=== PATIENT | female | born 1950 | race Caucasian/White ===

== ENCOUNTER 2018-01-27 15:28 | Emergency (ER) | payer OTHER, SELFPAY ==
[2018-01-27 15:32] VITALS: BP 143/87; PULSE 70; RESP 16; TEMP 36.4; O2SAT 98; BMI 25.7
--- NOTE | 2018-01-27 15:37 | DI.RAD.S_ITS ---
PROCEDURE: XR WRIST LT MIN 3V INDICATIONS: fell TECHNIQUE: 4 views of the wrist were acquired. COMPARISON: None. FINDINGS: Bones: Comminuted, displaced, intra-articular fracture of the distal radius is noted. Ulnar styloid process fracture is noted which is displaced. Scaphoid view: Scaphoid is intact Soft tissues: No suspicious soft tissue calcifications. IMPRESSION: Distal radius and ulna fractures. Dictated by: Imani Rivers MD, PhD on 01/27/2018 at 16:12 Approved by: Imani Rivers MD, PhD on 01/27/2018 at 16:12
--- NOTE | 2018-01-27 16:54 | ED.UPPEXIN ---
HPI - Extremity Injury (Upper) <ADE Barrios - Last Filed: 01/27/18 22:13> General Chief Complaint: Extremity Injury, Upper Stated Complaint: FELL, THINKS LT ARM BROKEN Time Seen by Provider: 01/27/18 16:54 Source: patient Mode of arrival: ambulatory Limitations: no limitations History of Present Illness HPI narrative: 67-year-old female had a ground level fall earlier this afternoon before arrival. She states that she accidentally tripped over a wooden Pallet causing her to fall backwards and she landed on her left hand that she use to brace her fall. She reports since that timeframe she has had pain into that area. She has got swelling to the left wrist. She reports increased pain with motion of the left wrist. She reports decreased pain when she does holes the wrist to her body. She denies any other injuries. No loss of conscious. She is ambulatory into the emergency room. MD complaint: injury to: left and wrist Related Data Previous Rx's Medication Instructions Recorded hydrocodone-acetaminophen [[place]] 1 tab PO Q4-6H PRN #10 tab 01/27/18 Allergies Allergy/AdvReac Type Severity Reaction Status Date / Time Penicillins AdvReac Intermediate Hives Verified 01/27/18 15:37 shellfish derived AdvReac Intermediate Vomiting Verified 01/27/18 15:37 Review of Systems <ADE Barrios - Last Filed: 01/27/18 22:13> Constitutional Denies chills, Denies fever(s), Denies lethargy and Denies weakness Eyes Denies change in vision, Denies eye discharge, Denies irritation and Denies loss of vision ENT Ears, Nose, Mouth, and Throat: Denies change in voice, Denies neck pain and Denies sore throat Cardiovascular Denies chest pain, Denies irregular heart rhythm, Denies lightheadedness, Denies palpitations, Denies dyspnea, Denies dyspnea on exertion and Denies orthopnea Respiratory Denies cough, Denies dyspnea, Denies dyspnea on exertion and Denies wheezing Gastrointestinal Gastrointestinal: Denies abdominal pain, Denies change in bowel habits, Denies diarrhea, Denies nausea and Denies vomiting Genitourinary Denies hematuria, Denies flank pain, Denies urinary incontinence and Denies urinary urgency Musculoskeletal Denies neck pain Comments: Left wrist with swelling and discomfor. t Integumentary/Breasts Denies pruritus, Denies erythema, Denies rash and Denies wounds Neurologic Denies confusion, Denies loss of vision and Denies weakness Psychiatric Denies anxiety, Denies confusion, Denies depression, Denies homicidal ideation and Denies suicidal ideation Endocrine Denies palpitations Hematologic/Lymphatic Denies easy bruising Allergic/Immunologic Denies wheezing Exam <ADE Barrios - Last Filed: 01/27/18 22:13> Initial Vital Signs Initial Vital Signs: Vital Signs Temperature 97.6 F 01/27/18 15:32 Pulse Rate 70 01/27/18 15:32 Respiratory Rate 16 01/27/18 15:32 Blood Pressure 143/87 H 01/27/18 15:32 Pulse Oximetry 98 01/27/18 15:32 Const General: cooperative and well developed Nutritional Appearance: well nourished Orientation: alert, awake, oriented x3 and not confused [place] Mouth: oral mucosae normal and moist mucous membranes Eyes Conjunctivae: conjunctivae normal Sclera: sclerae normal Pupils: PERRL EOM: EOM intact bilaterally Resp Effort & Inspection: normal respiratory effort, able to speak in complete sentences, no respiratory distress and no use of accessory muscles Auscultation: clear to auscultation bilaterally, no rales, no rhonchi and no wheezes Cardio Rate: regular rate Rhythm: regular rhythm Heart Sounds: no click, no gallops, no murmurs and no rubs Skin General: no rashes or lesions noted, No jaundice and No petechiae Neuro General: alert, oriented x3, gait normal and no focal motor deficits Speech: speech normal Extrem Other: Left wrist with swelling. No open lesions. Slight ecchymosis to the area. Distal sensation is intact. Distal cap refill less than 2 sec. Distal range of motion is intact. <Juvencio Laird MD - Last Filed: 01/30/18 08:44> Initial Vital Signs Initial Vital Signs: Vital Signs Temperature 97.6 F 01/27/18 15:32 Pulse Rate 70 01/27/18 15:32 Respiratory Rate 16 01/27/18 15:32 Blood Pressure 143/87 H 01/27/18 15:32 Pulse Oximetry 98 01/27/18 15:32 Procedures <ADE Barrios - Last Filed: 01/27/18 22:13> Orthopedic Splinting/Casting Injury #1: Additional Comments: Sugar tong splint applied to left forearm/wrist. After splint was applied distal CMS is intact. Course <ADE Barrios - Last Filed: 01/27/18 22:13> Orders Ordered: Discontinued Medications Hydrocodone Bitart/Acetaminophen ([place] 5/325) 1 tab PO NOW ONE Stop: 01/27/18 17:26 Last Admin: 01/27/18 18:24 Dose: 1 tab Vital Signs - 8 hr 01/27/18 15:32 01/27/18 17:13 01/27/18 18:50 Temperature 97.6 F 98.0 F Pulse Rate 70 69 69 Respiratory Rate 16 18 20 Blood Pressure 143/87 H 137/80 H Blood Pressure [Left Arm] 153/84 H Pulse Oximetry 98 97 99 <Juvencio Laird MD - Last Filed: 01/30/18 08:44> Orders Ordered: Discontinued Medications Hydrocodone Bitart/Acetaminophen ([place] 5/325) 1 tab PO NOW ONE Stop: 01/27/18 17:26 Last Admin: 01/27/18 18:24 Dose: 1 tab Vital Signs - 8 hr 01/27/18 15:32 01/27/18 17:13 01/27/18 18:50 Temperature 97.6 F 98.0 F Pulse Rate 70 69 69 Respiratory Rate 16 18 20 Blood Pressure 143/87 H 137/80 H Blood Pressure [Left Arm] 153/84 H Pulse Oximetry 98 97 99 MDM - Extremity Injury (Upper) <ADE Barrios - Last Filed: 01/27/18 22:13> Imaging Data Left wrist : Radiologist's impression: [address] [place] [id number] XRay Report Signed Patient: NIDA PARKER MR#: [id number] : 1950 Acct:[id number] Age/Sex: 67 / F Date of Service: 01/27/18 Loc: ED Accession Number: [id number] Procedure: XR wrist LT min 3V Ordering Provider: Juvencio Laird M.D. PROCEDURE: XR WRIST LT MIN 3V INDICATIONS: fell TECHNIQUE: 4 views of the wrist were acquired. COMPARISON: None. FINDINGS: Bones: Comminuted, displaced, intra-articular fracture of the distal radius is noted. Ulnar styloid process fracture is noted which is displaced. Scaphoid view: Scaphoid is intact Soft tissues: No suspicious soft tissue calcifications. IMPRESSION: Distal radius and ulna fractures. Dictated by: Imani Rivers MD, PhD on 01/27/2018 at 16:12 Approved by: Imani Rivers MD, PhD on 01/27/2018 at 16:12 [facility] Narrative Medical decision making narrative: Extremity of the left wrist was obtained and shows comminuted displaced impacted fracture of the left radius and status fracture of the left ulna. Discussed case with Dr. Mckeon who states that fracture is stable enough to splint. Patient is from out of town and is from [facility]. She is splinted with a sugar-tong splint. Provided with a CD with her x-rays she will follow up with her orthopedics next week [id number] Tylenol and Motrin as needed for any discomfort. Ice and elevation help with swelling. [place] is prescribed for breakthrough pain. For any worsening symptoms return emergency room. Discharge Plan Departure Patient Disposition: Home, Self-Care Clinical Impression: Left wrist fracture Discharge Date/Time: 01/27/18 19:01 Interventions: ED Discharge Assessment Last Done: 01/27/18 18:50 Instructions: DI for Distal Radius Fracture Activity Restrictions/Additional Instructions: X-rays show fracture of the distal radius and ulna. You have been placed in a splint for comfort and support use as directed. Use [id number] Tylenol or Motrin as needed for any discomfort. Ice and elevation over the next several days to help with swelling. [place] is prescribed for breakthrough pain not covered by Tylenol and Motrin use as directed no driving while on the [place]. Follow up with Orthopedics in the next few days for re-evaluation. For any worsening symptoms return to the emergency room. Prescriptions: New hydrocodone-acetaminophen [[place]] 5-325 mg tablet 1 tab PO Q4-6H PRN (Reason: pain) Qty: 10 RF: 0 Referrals: Federico Bishop ARNP [Emergency Provider] - <Juvencio Laird MD - Last Filed: 01/30/18 08:44> Sign Out Provider Sign Out Attestation: The PA/CUTTER HEAD SHARPENER functioned independently for the care of this pt, I was available, but not asked to participate in care. I am unable to determine appropriateness of management without personally examining the pt.
--- NOTE | 2018-01-27 17:05 | ED_ITS ---
HPI - Extremity Injury (Upper) <ADE Barrios - Last Filed: 01/27/18 22:13> General Chief Complaint: Extremity Injury, Upper Stated Complaint: FELL, THINKS LT ARM BROKEN Time Seen by Provider: 01/27/18 16:54 Source: patient Mode of arrival: ambulatory Limitations: no limitations History of Present Illness HPI narrative: 67-year-old female had a ground level fall earlier this afternoon before arrival. She states that she accidentally tripped over a wooden Pallet causing her to fall backwards and she landed on her left hand that she use to brace her fall. She reports since that timeframe she has had pain into that area. She has got swelling to the left wrist. She reports increased pain with motion of the left wrist. She reports decreased pain when she does holes the wrist to her body. She denies any other injuries. No loss of conscious. She is ambulatory into the emergency room. MD complaint: injury to: left and wrist Related Data Previous Rx's Medication Instructions Recorded hydrocodone-acetaminophen [[place]] 1 tab PO Q4-6H PRN #10 tab 01/27/18 Allergies Allergy/AdvReac Type Severity Reaction Status Date / Time Penicillins AdvReac Intermediate Hives Verified 01/27/18 15:37 shellfish derived AdvReac Intermediate Vomiting Verified 01/27/18 15:37 Review of Systems <ADE Barrios - Last Filed: 01/27/18 22:13> Constitutional Denies chills, Denies fever(s), Denies lethargy and Denies weakness Eyes Denies change in vision, Denies eye discharge, Denies irritation and Denies loss of vision ENT Ears, Nose, Mouth, and Throat: Denies change in voice, Denies neck pain and Denies sore throat Cardiovascular Denies chest pain, Denies irregular heart rhythm, Denies lightheadedness, Denies palpitations, Denies dyspnea, Denies dyspnea on exertion and Denies orthopnea Respiratory Denies cough, Denies dyspnea, Denies dyspnea on exertion and Denies wheezing Gastrointestinal Gastrointestinal: Denies abdominal pain, Denies change in bowel habits, Denies diarrhea, Denies nausea and Denies vomiting Genitourinary Denies hematuria, Denies flank pain, Denies urinary incontinence and Denies urinary urgency Musculoskeletal Denies neck pain Comments: Left wrist with swelling and discomfor. t Integumentary/Breasts Denies pruritus, Denies erythema, Denies rash and Denies wounds Neurologic Denies confusion, Denies loss of vision and Denies weakness Psychiatric Denies anxiety, Denies confusion, Denies depression, Denies homicidal ideation and Denies suicidal ideation Endocrine Denies palpitations Hematologic/Lymphatic Denies easy bruising Allergic/Immunologic Denies wheezing Exam <ADE Barrios - Last Filed: 01/27/18 22:13> Initial Vital Signs Initial Vital Signs: Vital Signs Temperature 97.6 F 01/27/18 15:32 Pulse Rate 70 01/27/18 15:32 Respiratory Rate 16 01/27/18 15:32 Blood Pressure 143/87 H 01/27/18 15:32 Pulse Oximetry 98 01/27/18 15:32 Const General: cooperative and well developed Nutritional Appearance: well nourished Orientation: alert, awake, oriented x3 and not confused [place]ENW[place] Mouth: oral mucosae normal and moist mucous membranes Eyes Conjunctivae: conjunctivae normal Sclera: sclerae normal Pupils: PERRL EOM: EOM intact bilaterally Resp Effort & Inspection: normal respiratory effort, able to speak in complete sentences, no respiratory distress and no use of accessory muscles Auscultation: clear to auscultation bilaterally, no rales, no rhonchi and no wheezes Cardio Rate: regular rate Rhythm: regular rhythm Heart Sounds: no click, no gallops, no murmurs and no rubs Skin General: no rashes or lesions noted, No jaundice and No petechiae Neuro General: alert, oriented x3, gait normal and no focal motor deficits Speech: speech normal Extrem Other: Left wrist with swelling. No open lesions. Slight ecchymosis to the area. Distal sensation is intact. Distal cap refill less than 2 sec. Distal range of motion is intact. <Juvencio Laird MD - Last Filed: 01/30/18 08:44> Initial Vital Signs Initial Vital Signs: Vital Signs Temperature 97.6 F 01/27/18 15:32 Pulse Rate 70 01/27/18 15:32 Respiratory Rate 16 01/27/18 15:32 Blood Pressure 143/87 H 01/27/18 15:32 Pulse Oximetry 98 01/27/18 15:32 Procedures <ADE Barrios - Last Filed: 01/27/18 22:13> Orthopedic Splinting/Casting Injury #1: Additional Comments: Sugar tong splint applied to left forearm/wrist. After splint was applied distal CMS is intact. Course <ADE Barrios - Last Filed: 01/27/18 22:13> Orders Ordered: Discontinued Medications Hydrocodone Bitart/Acetaminophen ([place] 5/325) 1 tab PO NOW ONE Stop: 01/27/18 17:26 Last Admin: 01/27/18 18:24 Dose: 1 tab Vital Signs - 8 hr 01/27/18 15:32 01/27/18 17:13 01/27/18 18:50 Temperature 97.6 F 98.0 F Pulse Rate 70 69 69 Respiratory Rate 16 18 20 Blood Pressure 143/87 H 137/80 H Blood Pressure [Left Arm] 153/84 H Pulse Oximetry 98 97 99 <Juvencio Laird MD - Last Filed: 01/30/18 08:44> Orders Ordered: Discontinued Medications Hydrocodone Bitart/Acetaminophen ([place] 5/325) 1 tab PO NOW ONE Stop: 01/27/18 17:26 Last Admin: 01/27/18 18:24 Dose: 1 tab Vital Signs - 8 hr 01/27/18 15:32 01/27/18 17:13 01/27/18 18:50 Temperature 97.6 F 98.0 F Pulse Rate 70 69 69 Respiratory Rate 16 18 20 Blood Pressure 143/87 H 137/80 H Blood Pressure [Left Arm] 153/84 H Pulse Oximetry 98 97 99 MDM - Extremity Injury (Upper) <ADE Barrios - Last Filed: 01/27/18 22:13> Imaging Data Left wrist : Radiologist's impression: [address] [place] [id number] XRay Report Signed Patient: NIDA PARKER MR#: [id number] : 1950 Acct:[id number] Age/Sex: 67 / F Date of Service: 01/27/18 Loc: ED Accession Number: [id number] Procedure: XR wrist LT min 3V Ordering Provider: Juvencio Laird M.D. PROCEDURE: XR WRIST LT MIN 3V INDICATIONS: fell TECHNIQUE: 4 views of the wrist were acquired. COMPARISON: None. FINDINGS: Bones: Comminuted, displaced, intra-articular fracture of the distal radius is noted. Ulnar styloid process fracture is noted which is displaced. Scaphoid view: Scaphoid is intact Soft tissues: No suspicious soft tissue calcifications. IMPRESSION: Distal radius and ulna fractures. Dictated by: Imani Rivers MD, PhD on 01/27/2018 at 16:12 Approved by: Imani Rivers MD, PhD on 01/27/2018 at 16:12 [facility] Narrative Medical decision making narrative: Extremity of the left wrist was obtained and shows comminuted displaced impacted fracture of the left radius and status fracture of the left ulna. Discussed case with Dr. Mckeon who states that fracture is stable enough to splint. Patient is from out of town and is from [facility]. She is splinted with a sugar-tong splint. Provided with a CD with her x-rays she will follow up with her orthopedics next week over-the- counter Tylenol and Motrin as needed for any discomfort. Ice and elevation help with swelling. [place] is prescribed for breakthrough pain. For any worsening symptoms return emergency room. Discharge Plan Departure Patient Disposition: Home, Self-Care Clinical Impression: Left wrist fracture Discharge Date/Time: 01/27/18 19:01 Interventions: ED Discharge Assessment Last Done: 01/27/18 18:50 Instructions: DI for Distal Radius Fracture Activity Restrictions/Additional Instructions: X-rays show fracture of the distal radius and ulna. You have been placed in a splint for comfort and support use as directed. Use [id number] Tylenol or Motrin as needed for any discomfort. Ice and elevation over the next several days to help with swelling. [place] is prescribed for breakthrough pain not covered by Tylenol and Motrin use as directed no driving while on the [place]. Follow up with Orthopedics in the next few days for re-evaluation. For any worsening symptoms return to the emergency room. Prescriptions: New hydrocodone-acetaminophen [[place]] 5-325 mg tablet 1 tab PO Q4-6H PRN (Reason: pain) Qty: 10 RF: 0 Referrals: Federico Bishop ARNP [Emergency Provider] - <Juvencio Laird MD - Last Filed: 01/30/18 08:44> Sign Out Provider Sign Out Attestation: The PA/WOOD CALKER functioned independently for the care of this pt, I was available, but not asked to participate in care. I am unable to determine appropriateness of management without personally examining the pt.
[2018-01-27 17:13] VITALS: BP 153/84; PULSE 69; RESP 18; TEMP 36.7; O2SAT 97
[2018-01-27] MEDS: HYDROCODONE/ACET 5/325 TABLET 1 TAB PO (18:24)
[2018-01-27 18:50] VITALS: BP 137/80; PULSE 69; RESP 20; O2SAT 99
== END 2018-01-27 19:01 | disposition home or self-care (01) ==
PROVIDERS: Emergency Provider Nurse Practitioner Family
DX: S52.572A Other intraarticular fracture of lower end of left radius, initial encounter for closed fracture (principal); S52.612A Displaced fracture of left ulna styloid process, initial encounter for closed fracture; W01.0XXA Fall on same level from slipping, tripping and stumbling without subsequent striking against object, initial encounter
CPT/HCPCS: 29125; 73110; 99282; 99283